=== PATIENT | female | born 1995 ===

== ENCOUNTER → 2019-04-05 | Outpatient (CLI) | payer OTHER | END | disposition home or self-care (01) | LOC: PRENATAL 08:45 | DX: O34.81 Maternal care for other abnormalities of pelvic organs, first trimester (principal) ==

== ENCOUNTER 2022-10-09 07:47 | Emergency (ER) | payer OTHER ==
[~2022-10-09] VITALS: Ht 160 cm; Wt 54.9 kg
[2022-10-09] MEDS ORDERED: PRENATAL + DHA1 EAC1 (07:56)
== END 2022-10-09 12:43 | disposition home or self-care (01) ==
LOC: ER 07:47
DX: N93.8 Other specified abnormal uterine and vaginal bleeding (principal)

== ENCOUNTER 2023-10-25 14:08 | Outpatient (CLI) | payer OTHER ==
[~2023-10-25 14:08] MED LIST: PRENATAL + DHA1 EAC1
== END 2023-10-25 14:09 | disposition home or self-care (01) ==
LOC: PRENATAL 14:08
PROVIDERS: ATTEND Obstetrics & Gynecology Maternal & Fetal Medicine
DX: O26.849 Uterine size-date discrepancy, unspecified trimester (principal); O36.8199 Decreased fetal movements, unspecified trimester, other fetus; Z3A.32 32 weeks gestation of pregnancy